=== PATIENT | male | born 1960 | race Caucasian/White ===

== ENCOUNTER 2021-08-11 13:08 | Outpatient (CLI) | payer SELFPAY ==
--- NOTE | 2021-08-11 | XR_ITS ---
WS: [id number] PROCEDURE: XR chest 2V* [id number] CLINICAL INFORMATION: CHF EXACERBATION GENERALIZED WEAKNESS COMPARISON: None. FINDINGS: Heart: Cardiomegaly. Lungs: Moderate chronic emphysematous changes. No acute pulmonary infiltrates. No focal pneumonia or pleural fluid. Bones: Normal visualized bony structures. XR/XR chest 2V* [id number] IMPRESSION: 1. Cardiomegaly. 2. No acute-appearing pulmonary infiltrates.
== END 2021-08-11 13:09 | disposition home or self-care (01) ==
PROVIDERS: Visit Provider Nurse Practitioner Family
DX: I50.9 Heart failure, unspecified (principal); R63.5 Abnormal weight gain; R53.1 Weakness; R06.01 Orthopnea; I51.7 Cardiomegaly; R91.8 Other nonspecific abnormal finding of lung field
CPT/HCPCS: 71046

== ENCOUNTER 2025-03-20 09:09 | Outpatient (CLI) | payer SELFPAY ==
--- NOTE | 2025-03-20 09:14 | CT_ITS ---
WS: [id number] CT ABDOMEN AND PELVIS WITH AND WITHOUT CONTRAST HISTORY: OTHER FECAL ABNORMALITIES/ELEVATED CARCINOEMBRYONIC ANTIGEN TECHNIQUE: Unenhanced 5 mm axial imaging first performed through the abdomen. Post contrast imaging through the abdomen and pelvis. Oral contrast has not been provided. Sagittal and coronal reformats are submitted. All CT scans at [facility] use at least one of these dose optimization techniques: automated exposure control; mA and/or kV adjustment per patient size (includes targeted exams where dose is matched to clinical indication); or iterative reconstruction. CONTRAST: Omnipaque 350; 95 mL IV. DLP: 2608.54 mGy.cm COMPARISON: None available. Benign granuloma RIGHT lung base. Heart is normal size. Small hiatal hernia. Liver: Liver is abnormal. Liver is normal size but there are multiple low- attenuation masses scattered throughout the liver. The largest is from the lateral segment of the LEFT lobe measuring 7.9 x 6.8 cm. There is peripheral enhancement suggests this is likely a hemangioma. Some of the remaining masses throughout the liver demonstrate mild peripheral enhancement and others do not. No intrahepatic duct dilatation. Gallbladder is slightly contracted. Negative spleen and pancreas. 1.7 cm RIGHT adrenal adenoma with low-attenuation Hounsfield units. Normal LEFT adrenal gland. Mild atherosclerosis aorta. Bilateral renal masses. Exophytic low- attenuation mass lower pole RIGHT kidney measures 7.8 x 8.0 cm with a focal wall calcification. There is an additional more solid-appearing mass with calcification medial upper pole LEFT kidney measuring 2.6 x 1.9 cm. No enhancement noted. Normally distended stomach and small bowel. Short segment narrowing and colonic wall thickening involving the rectosigmoid junction extends over a length of 6.5 cm. Wall thickening measures up to 1.4 cm. Narrowing of the lumen. No obstruction. No significant diverticular disease. No appendicitis. Ventral abdominal wall hernia contains fat. No ascites or adenopathy. Mild scoliosis. Advanced degenerative disc disease at L5-S1. Unilateral LEFT L5 pars defect. CT/CT abdomen pelvis wo/w [id number] IMPRESSION: 1. Short segment circumferential rectosigmoid wall thickening with narrowing o f the lumen. Neoplasm needs to be excluded. Recommend colonoscopy. 2. Numerous hepatic masses throughout both lobes of the liver. Quality of this examination is compromised by patient's body habitus. Some of these masses are probably hemangiomas. Additional sites of cavernous hemangiomas and/or metasta sis are not excluded. It may be difficult imaging this patient well due to body habitus. PET/CT imaging may be of benefit. Additional attempt at multiphase im aging of the liver by MRI or CT could be of benefit. Ultrasound may probably no t be helpful due to body habitus. 3. Bilateral renal masses. RIGHT renal mass is probably a cyst with wall calci fication. The more solid mass upper pole LEFT kidney will need to be further ev aluated but this may be a complex cyst. 4. RIGHT adrenal gland mass, 1.7 cm is probably an adenoma.
[2025-03-20] MEDS: iohexol 350 mg/mL 500 mL Btl (per mL) IV (10:30)
== END 2025-03-20 09:10 | disposition home or self-care (01) ==
LOC: RAD 09:12
PROVIDERS: PCP Nurse Practitioner Family; Visit Provider Nurse Practitioner Family
DX: R19.5 Other fecal abnormalities (principal); R97.0 Elevated carcinoembryonic antigen [CEA]; R93.89 Abnormal findings on diagnostic imaging of other specified body structures; K76.89 Other specified diseases of liver; N28.89 Other specified disorders of kidney and ureter; R93.422 Abnormal radiologic findings on diagnostic imaging of left kidney; E27.9 Disorder of adrenal gland, unspecified; J84.10 Pulmonary fibrosis, unspecified; K44.9 Diaphragmatic hernia without obstruction or gangrene; R93.2 Abnormal findings on diagnostic imaging of liver and biliary tract; I70.0 Atherosclerosis of aorta; R93.421 Abnormal radiologic findings on diagnostic imaging of right kidney; K43.9 Ventral hernia without obstruction or gangrene; M41.9 Scoliosis, unspecified; M51.379 Other intervertebral disc degeneration, lumbosacral region without mention of lumbar back pain or lower extremity pain; M43.06 Spondylolysis, lumbar region
CPT/HCPCS: 74178

== ENCOUNTER 2025-07-10 07:30 | Day surgery (SDC) | payer MEDICAID, SELFPAY ==
[2025-07-10 07:56] VITALS: BP 155/86; PULSE 61; RESP 18; TEMP 36.3; O2SAT 95; BMI 53.8
--- NOTE | 2025-07-10 08:51 | P.ANESASSM_ITS ---
Pre-Anesthetic Assessment Height/Weight: Height 1.87 m Weight 187.787 kg Temp Pulse Resp BP Pulse Ox O2 Del Method 97.3 F L 61 18 155/86 95 Room Air 07/10/25 07:56 07/10/25 07:56 07/10/25 07:56 07/10/25 07:56 07/10/25 07:56 07/10/25 07:56 Preop Diagnosis: Hematochezia Operation Date: 07/10/25 08:45 Proposed Procedures p Colonoscopy 70988 G0105 K92.1(Not Applicable) - Ralph Han MD Familial anesthetic complications: none Was Beta Zackery taken within 24 hours: Yes Last intake: Intake Last Liquid Date 07/09/25 Last Liquid Time 20:00 Last Solid Date 07/09/25 Last Solid Time 10:30 Social Tobacco (smokeless >12hours) and No alcohol Exam alert, clear to auscultation bilaterally and regular rate & rhythm Airway Submandibular: within normal limits Cervical ROM: within normal limits Mallampati: Class II Dentition: chipped (front teeth appear brittle.) Pulmonary Sleep Apnea (cpap compliant) CV/HEM Congestive Heart Failure and Hypertension None reported Hepatic None reported GI constipation hematochezia Metabolic Hyperlipidemia and Morbid Obesity [facility] [place] None reported Neuropsych None reported Anesthetic Plan ASA status: 3 Anesthesia: MAC Medications/Allergies Home Medications ?Medication ?Instructions ?Recorded ?Confirmed ?Last Taken ?Type furosemide 40 mg tablet (Lasix) 40 mg PO BID 05/24/25 07/04/25 07/03/25 History metoprolol tartrate 25 mg tablet 25 mg PO BID 05/24/25 07/10/25 07/10/25 History 0530 aspirin 81 mg tablet 81 mg PO DAILY 07/04/2506/2907/09/25 History 0700 Allergies Allergy/AdvReac Type Severity Reaction Status Date / Time Penicillins Allergy ALGY-Rash Verified 07/04/25 13:20 Current Medications Generic Name Dose Route Start Last Admin Trade Name Freq PRN Reason Stop Dose Admin Sodium Chloride 1,000 mls @ 15 mls/hr 07/10/25 07:36 07/10/25 08:00 Sodium Chloride 0.9% IV 07/11/25 07:35 15 mls/hr .Q24H PRN Administration COLONOSCOPY FLUIDS PFSH Anesthesia Social History (Updated 05/24/25 @ 14:44 by Thelma Casas) Smoking and tobacco/nicotine status: former use of tobacco/nicotine Alcohol intake: former Substance/Drug Use: never
--- NOTE | 2025-07-10 09:03 | W.PM.OPSFHP ---
Same Day Surgery H&P Indication for Procedure/HPI DATE OF PROCEDURE: July 10, 2025 CHIEF COMPLAINT/INDICATIONFOR SURGICAL PROCEDURE: hematochezia PREOP DIAGNOSIS: Hematochezia PLANNED PROCEDURE: Operation Date: 07/10/25 08:45 Proposed Procedures p Colonoscopy 39943 G0105 K92.1(Not Applicable) - Ralph Han MD Medications/Allergies* Home Medications ?Medication ?Instructions ?Recorded ?Confirmed ?Type furosemide 40 mg tablet (Lasix) 40 mg PO BID 05/24/25 07/04/25 History metoprolol tartrate 25 mg tablet 25 mg PO BID 05/24/25 07/10/25 History aspirin 81 mg tablet 81 mg PO DAILY 07/04/25 07/10/25 History Allergies/Adverse Reactions Allergy/AdvReac Type Severity Reaction Status Date / Time Penicillins Allergy ALGY-Rash Verified 07/04/25 13:20 Current Medications: Generic Name Dose Route Start Last Admin Trade Name Freq PRN Reason Stop Dose Admin Sodium Chloride 1,000 mls @ 15 mls/hr 07/10/25 07:36 07/10/25 08:00 Sodium Chloride 0.9% IV 07/11/25 07:35 15 mls/hr .Q24H PRN Administration COLONOSCOPY FLUIDS Pertinent History/Comorbid Conditions* Social History Smoking and tobacco/nicotine status: former use of tobacco/nicotine Alcohol intake: former Substance/Drug Use: never Pertinent Exam Findings alert, oriented x 3, clear to auscultation bilaterally, regular rate & rhythm and procedure specific exam findings abdomen soft, nt, nd Recommendations Risks and benefits of procedure reviewed and Patient/family agree to proceed Surgery/Procedure today Coding Level of Care Code Acute Code for Chg Rere
[2025-07-10 09:29] LABS: Hematocrit 41.1 % (37-53); Hemoglobin 13.30 g/dL (11.27-16.99); Mean Corpuscular HGB Conc 32.4 g/dL (30-55); Mean Corpuscular Hemoglobin 29.4 pg (27-33); Mean Corpuscular Volume 90.9 fl (82-101); Nucleated Red Blood Cells % 0 %; Platelet Count 227 10^3/cmm (157-399); Red Blood Count 4.52 10^6/uL (3.85-5.65); White Blood Count 7.88 10^3/uL (3.29-11.43)
[2025-07-10 09:43] LABS: Anion Gap 11.1 (5-19); Blood Urea Nitrogen 13 mg/dL (8-23); Calcium 9.7 mg/dL (8.5-10.5); Carbon Dioxide 28 mmol/L (22-29); Chloride 101 mmol/L (98-107); Creatinine Clr Calc Pharmacy 148.1215; Glucose 126 mg/dL (65-115); Osmolality Calculated 284 mOsm/kg (285-295); Potassium 4.1 mmol/L (3.5-5.1); Sodium 136 mmol/L (136-145)
--- NOTE | 2025-07-10 10:36 | PC.NURSE ---
cecum time 1027
[2025-07-10 10:41] VITALS: BP 132/76; PULSE 76; RESP 14; TEMP 36.1; O2SAT 98
--- NOTE | 2025-07-10 11:13 | ANE.PACU2 ---
Inpatient post-anesthesia follow up: Airway intact: Yes Vital signs: Temperature 97.0 F Pulse Rate 76 Respiratory Rate 14 Blood Pressure 132/76 Pulse Oximetry 98 Oxygen Delivery Me thod Room Air Oxygen Flow Rate Fraction of Inspir ed Oxygen Hydration adequate: Yes Nausea and vomiting: No Pain level: 1 Mental status: Baseline
[2025-07-13 14:13] LABS: Mismatch Repari Proteins-IHC See Report
== END 2025-07-10 11:13 | disposition home or self-care (01) ==
PROVIDERS: PCP Nurse Practitioner Family; Visit Provider Student in an Organized Health Care Education/Training Program
PROC: 0DJD8ZZ Inspection of Lower Intestinal Tract, Via Natural or Artificial Opening Endoscopic (ICD-10-PCS; CPT 45378; principal; 2025-07-10 08:45)
DX: C20 Malignant neoplasm of rectum (principal); K92.1 Melena; G47.30 Sleep apnea, unspecified; I11.0 Hypertensive heart disease with heart failure; I50.9 Heart failure, unspecified; E78.5 Hyperlipidemia, unspecified; E66.01 Morbid (severe) obesity due to excess calories; Z68.43 Body mass index [BMI] 50.0-59.9, adult; Z79.82 Long term (current) use of aspirin; Z87.891 Personal history of nicotine dependence
CPT/HCPCS: 36415; 45380; 45381; 80048; 85025; 88305; 88341; 88342; J2704; J3490; J7030; J9999

== ENCOUNTER → 2025-07-19 10:51 | Outpatient (BNVA) | payer MEDICAID, SELFPAY | PROVIDERS: PCP Nurse Practitioner Family; Visit Provider Student in an Organized Health Care Education/Training Program | DX: Z09 Encounter for follow-up examination after completed treatment for conditions other than malignant neoplasm (principal) | CPT/HCPCS: 99213 ==

== ENCOUNTER 2025-07-20 13:48 | Outpatient (CLI) | payer MEDICAID, SELFPAY ==
--- NOTE | 2025-07-20 13:55 | PETR_ITS ---
PROCEDURE INFORMATION: Exam: PET/CT Skull Base to Mid-thigh Exam date and time: 07/20/2025 2:50 PM Age: 64 years old Clinical indication: Condition or disease; Primary cancer: Rectal cancer; Additional info: A primary or metastatic malignant neoplasm that affects the LABS AND CLINICAL REPORTS: Glucose: 114 mg/dl Treatment strategy for malignancy (PET staging): Initial Staging (PI) TECHNIQUE: Imaging protocol: Following at least four-hour fasting and following the injection of radiopharmaceutical, low dose CT images were obtained. Then, PET images were obtained. Attenuation corrected images were constructed using the CT scan. Fused images of PET and CT were reviewed. The standardized uptake values (SUV) reported below are maximum values within a region of interest, expressed in gm/ml. Exam includes orbital meatal line to mid-thigh. SUV normalization method: BodyWeight Radiopharmaceutical: 11.22 mCi F-18 FDG (Fluorodeoxyglucose), IV. Time of imaging post radiopharmaceutical administration: 45 minutes Injection site: left hand COMPARISON: CT abdomen pelvis wo/w [id number] 03/20/2025 10:21 AM FINDINGS: Brain: On the nondedicated limited brain images there is no abnormal distribution of the radiotracer in the orozco and white matter. Pharynx: Normal distribution of the radiotracer in nasopharyngeal, and oropharyngeal structures. Larynx: Normal distribution of the radiotracer in laryngeal structures. Lungs, pleura and trachea: 2 cm left upper lobe paramediastinal round nodule on axial image 84 measures 2.9 SUV. A couple of calcified granulomas in the right lower lobe. No pleural effusion. Heart: Normal physiologic uptake. Mild cardiomegaly. There is no pericardial effusion. Mediastinal space: No abnormal uptake. Liver: Bilobar partially calcified metastases measure up to 6 cm with the highest uptake of 11.5 SUV as seen in 4 cm segment 4 metastasis Gallbladder and biliary ducts: No abnormal uptake. Pancreas: Normal distribution of radiotracer. Spleen: Normal size without abnormal radiotracer uptake. Adrenal glands: No abnormal uptake. 2.1 x 1.4 cm right adrenal nodule likely represents benign adrenal cortical adenoma with maximum density of 14 Hounsfield units. No left adrenal nodules Kidneys and ureters: Normal physiologic uptake. No hydronephrosis. 3 cm hyperdense nodule (45 Hounsfield units) exophytic cephalad from the upper pole of the left kidney containing a single small peripheral calcification is hypermetabolic (0.6 SUV) compatible with benign finding, likely a hemorrhagic cyst. 8 cm simple cyst is exophytic laterally from the lower pole of the right kidney. Stomach and bowel: Primary tumor noted as about 7 cm long segment of concentric wall thickening in the upper rectum measuring 14.4 SUV. About 3.5 cm long segment of intense uptake in the distal sigmoid colon measuring 55.4 SUV corresponding to well-defined 4 cm polypoid mass on prior CT on 03/20/2025 (series 6, image 66, series 8, image 47). Long linear segment of increased uptake in descending colon, and diffusely increased activity in the right and transverse colon and in a few loops of small bowel with no corresponding CT abnormality is benign. No abnormal dilatation of the bowel. Vasculature: No abnormal uptake. Lymph nodes: No abnormal uptake. No lymphadenopathy in the head, neck, chest, abdomen, pelvis, and extremities. Sequela of exposure to granulomatous disease with calcified granulomas in normal-sized right hilar lymph nodes. Skeleton: No abnormal uptake in the visualized axial and appendicular skeleton. Soft tissues: No abnormal uptake in the visualized head, neck, chest, abdomen, pelvis, and extremities. Notes: METRICS: Mediastinal blood pool maximal uptake is 3.8 SUV. Normal liver parenchyma maximal uptake is 4.3 SUV. PET/PET skull to thigh INIT [id number] IMPRESSION: 1. Primary rectal cancer in the upper rectum noted as about 7 cm long segment of wall thickening measuring 14.4 SUV. Bilobar partially calcified liver metastases measuring up to 6 cm with the highest uptake of 11.5 SUV. 2. 2 cm solid lung nodule in the left upper lobe with low-grade uptake of 2.9 SUV is not compatible with colon cancer metastasis, possibly benign finding. 3. Polypoid nonobstructing mass in the distal sigmoid colon with most intense uptake of 55.4 SUV significantly exceeding uptake within malignant lesions described above (in the rectum and in the liver) likely represents another pathology, not necessarily malignant. 4. Hypometabolic hyperdense nodule exophytic from the upper pole of the left kidney likely represents hemorrhagic cyst. Additional benign findings include large simple cyst in the lower pole of the right kidney, and small right adrenal nodule likely representing adenoma.
== END 2025-07-20 13:49 | disposition home or self-care (01) ==
PROVIDERS: PCP Nurse Practitioner Family; Visit Provider Nurse Practitioner
DX: C20 Malignant neoplasm of rectum (principal); C78.7 Secondary malignant neoplasm of liver and intrahepatic bile duct; R91.1 Solitary pulmonary nodule; K63.89 Other specified diseases of intestine; N28.9 Disorder of kidney and ureter, unspecified
CPT/HCPCS: 78815; A9552

== ENCOUNTER 2025-08-02 10:30 | Oncology outpatient (recurring) (ONCR) | payer MEDICAID, SELFPAY ==
[2025-08-02 12:22] LABS: Hematocrit 44.2 % (37-53); Hemoglobin 14.40 g/dL (11.27-16.99); Mean Corpuscular HGB Conc 32.6 g/dL (30-55); Mean Corpuscular Hemoglobin 29.3 pg (27-33); Mean Corpuscular Volume 89.8 fl (82-101); Nucleated Red Blood Cells % 0 %; Platelet Count 242 10^3/cmm (157-399); Red Blood Count 4.92 10^6/uL (3.85-5.65); White Blood Count 8.29 10^3/uL (3.29-11.43)
[2025-08-02 12:38] LABS: INR 0.97 (0.8-1.2); Prothrombin Time 13.60 SECONDS (12.1-14.9)
[2025-08-02 12:39] LABS: Partial Thromboplastin Time 26.0 SECONDS (23.9-36.7)
[2025-08-02 12:49] LABS: Carcinoembryonic Antigen 457.2 ng/mL (0.0-4.7)
[2025-08-02 13:01] LABS: Alanine Aminotransferase 23 U/L (0-41); Albumin Level 4.1 g/dL (3.5-5.2); Alkaline Phosphatase 149 U/L (40-130); Anion Gap 13.9 (5-19); Aspartate Amino Transferase 23 U/L (0-40); Blood Urea Nitrogen 14 mg/dL (8-23); Calcium 10.3 mg/dL (8.5-10.5); Carbon Dioxide 27 mmol/L (22-29); Chloride 102 mmol/L (98-107); Creatinine Clr Calc Pharmacy 134.3537; Globulin 3.2 g/dL (1.3-4.6); Glucose 122 mg/dL (65-115); Osmolality Calculated 290 mOsm/kg (285-295); Potassium 3.9 mmol/L (3.5-5.1); Sodium 139 mmol/L (136-145); Total Protein 7.3 g/dL (6.6-8.7)
--- NOTE | 2025-08-02 13:45 | N.ONRAD NP_ITS ---
Radiation Oncology New Patient Visit Patient: Everett Cuellar MR#: [id number] : 1960> Age: 64> Sex: Male> Dictated by: Ash Swenson DO/SEEMA/MARTHA Date of Service: 08/02/2025 Referring Physician(s) : PHYLLIS JOSE MD Diagnosis: C78.7 - secondary malignant neoplasm of liver and intrahepatic bile duct, Diagnosed 07/20/2025 (active) and C20 - malignant neoplasm of rectum, Diagnosed 07/10/2025 (active). RECTAL- MD ADENOCARCINOMA, 4CM FROM AV, ~7CM LENGTH (14.4), 50% OBSTRUCTIVE, DISTAL SIMOID (55.4)- DIFFERENT PATHLOGY?, LATA NODULE 2CM (2.9)RT SIDED FLAT STOOL, +RECTAL BLEEDING, 82# WT LOSS, 5013 DOWN TO 419#, LIVER METS 6CM (11.5)/4CM ( SEGMENT 4), MORBID OBESITY, LIVER BX/SURG EVAL/PULMONARY EVAL/MRI PELVIS, SHELBY DITAL PORTION OF MASS NOTED WITH DISEASE FROM 6-12 O???CLOCK ~ 50% OCCULSIVE DS, LEFT LOBE LIVER MASS-7.9 x 6[address] 03/20/2025, CEA-457.2. STAGE: IV ICD-10: C20, C78.7 Radiotherapy to date: Summary > No prior radiation therapy. Chief Complaint / History of Present Illness: Patient and significant other here to discuss options regarding stage IV rectal carcinoma This is a pleasant 64-year-old morbidly obese male seen for recent diagnosis of MD ADENOCARCINOMA of the distal rectum. Patient sought PCP directed colonoscopy after noting more consistent rectal bleeding since fall at 2023. Patient had difficulty obtaining insurance so that colonoscopy could be scheduled. CT A/P on 03/20/2025 showed no liver of normal size with multiple low-attenuation masses scattered throughout the liver. The largest was in the lateral segment of the left lobe measuring 7.9 x 6.8 cm. There was peripheral enhancement suggesting that it is likely hemangioma Patient underwent colonoscope on 07/10/2025. This returned MD-ADENOCARCINOMA of a lesion partially obstructing that was friable appearing at distal rectum measuring 5 x 3 cm. Laboratory findings were essentially normal with CEA pending. PET/CT on 07/20/2025 showed a 2 cm LATA paramediastinal round nodule (55.4) significantly exceeding uptake within malignant lesions noted. The liver had by lobular partially calcified metastasis measuring up to 6 cm with the highest uptake of 11.5 is seen in 4 cm met in segment 4. In the brow the primary tumor noted to be about 7 cm in length noted in the upper rectum (14.4). There was a 3.5 cm segment of intense uptake in the distal sigmoid colon measuring (55.4) corresponding to a well-defined 4 cm polypoid mass noted on CT of 03/20/2025 no lymphadenopathy in the head neck chest abdomen pelvis or extremities. There is no abnormal uptake in the bones. Current Medications: - Last Reconciled 08/02/25 by Steve Up ascorbate calcium (vitamin C) 500 mg PO DAILY aspirin 81 mg PO DAILY bisacodyl (Dulcolax (bisacodyl)) 5 mg PO DAILY PRN furosemide (Lasix) 40 mg PO BID magnesium hydroxide (Milk of Magnesia) 15 mL PO BID PRN metoprolol tartrate 25 mg PO BID Allergies: Penicillins Allergy (Verified 08/02/25 11:12) ALGY-Rash Medical History: As above Surgical History: As above Family History: Father of lung cancer and brother of colon carcinoma. Social History: Smoking and tobacco/nicotine status: former use of tobacco/nicotine Alcohol intake: former patient has 6 significant other of 21 years. He is a prior . 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 Substance/Drug Use: never Current Complaints / Review of Systems: . As above Vital Signs: Performed on 08/02/2025 10:24 AM BMI - 55.347 kg/m2 (high), Height - 73 in, Weight - 419.5 lbs, Temperature - 97.8 f, Pulse - 67 /min, Respiration - 16 /min, O2 Sat - 97 %, Pain - 0, Fatigue - 0 and BP - 135/ 71 mm(hg). Physical Exam: AAOX3 neck is supple thyroid midline. Abdomen obese nontender no rebound. Extremities intact x 4. Vertebral exam shows no bony tenderness. shows normal male external genitalia for age. Rectal exam shows sphincter tone to be adequate. The distal portion of the mass could be felt and that was from the 6:00 to 12 o'clock position. No blood per exam glove. Performance Status: KPS 80 Pathology: Primary, c78.7 - secondary malignant neoplasm of liver and intrahepatic bile duct, Diagnosed 07/20/2025 (active) and Primary, c20 - malignant neoplasm of rectum, Diagnosed 07/10/2025 (active) . Lab: PENDING CEA Imaging: See HPI Impression: C78.7 - secondary malignant neoplasm of liver and intrahepatic bile duct, Diagnosed 07/20/2025 (active) and C20 - malignant neoplasm of rectum, Diagnosed 07/10/2025 (active). RECTAL- MD ADENOCARCINOMA, 4CM FROM AV, ~7CM LENGTH (14.4), 50% OBSTRUCTIVE, DISTAL SIMOID (55.4)- DIFFERENT PATHLOGY?, LATA NODULE 2CM (2.9)RT SIDED FLAT STOOL, +RECTAL BLEEDING, 82# WT LOSS, 5013 DOWN TO 419#, LIVER METS 6CM (11.5)/4CM ( SEGMENT 4), MORBID OBESITY, LIVER BX/SURG EVAL/PULMONARY EVAL/MRI PELVIS, SHELBY DITAL PORTION OF MASS NOTED WITH DISEASE FROM 6-12 O???CLOCK ~ 50% OCCULSIVE DS, CEA ??? 457.2. STAGE: IV ICD-10: C20, C78.7 Plan: Discussed options with patient and significant other and they wish to proceed with treatment. Open MRI of the pelvis, Surgical evaluation Pulmonary evaluation, Liver BX, CEA 457.2 RTC after chemotherapy and liver biopsy results. Signed by: 08/02/2025 1:48:42 PM <<Signature on File>> Time spent with patient/significant other/record review/report reduction: 70 minutes CPT Code: CPT Code:
== END 2025-08-28 23:59 | disposition home or self-care (01) ==
LOC: ONCMED 10:30
PROVIDERS: PCP Nurse Practitioner Family; Visit Provider Internal Medicine
DX: C20 Malignant neoplasm of rectum (principal); C78.7 Secondary malignant neoplasm of liver and intrahepatic bile duct
CPT/HCPCS: 36415; 80053; 82378; 83615; 85025; 85610; 85730; 99205

== ENCOUNTER 2025-08-13 07:50 | Outpatient (CLI) | payer MEDICAID, SELFPAY ==
--- NOTE | 2025-08-13 08:00 | CT_ITS ---
WS: [id number] CT CHEST TECHNIQUE: Noncontrast CT of the chest with coronal and sagittal reformatted images. CLINICAL INFORMATION: lung nodule COMPARISON: PET/CT 07/20/2025 DLP: [address] scans at [facility] use at least one of these dose optimization techniques: automated exposure control; mA and/or kV adjustment per patient size (includes targeted exams where dose is matched to clinical indication); or iterative reconstruction. FINDINGS: Partially visualized and partially calcified liver metastasis as seen on the recent PET/CT. Again seen is the irregular spiculated nodule in the LEFT upper lobe medially measuring approximately 2.5 x 1.7 cm. Indeterminate on the prior PET/CT but has a suspicious appearance by CT. This measures a few millimeters larger today compared to the prior PET/CT Tiny noncalcified nodule LEFT upper lobe anteriorly. Small RIGHT perifissural nodule. Normal caliber thoracic aorta. No mediastinal or hilar lymphadenopathy. Stable increased attenuation lesion upper pole LEFT kidney. Hypertrophic changes thoracic spine. CT/CT chest ION (PULM ONLY) [id number] IMPRESSION: 1. Images obtained for intraoperative navigational bronchoscopy
== END 2025-08-13 07:51 | disposition home or self-care (01) ==
PROVIDERS: PCP Nurse Practitioner Family; Visit Provider Internal Medicine
DX: R91.1 Solitary pulmonary nodule (principal)
CPT/HCPCS: 71250

== ENCOUNTER → 2025-08-21 15:12 | Outpatient (BNVA) | payer MEDICAID, SELFPAY | PROVIDERS: PCP Nurse Practitioner Family; Visit Provider Internal Medicine | DX: R07.9 Chest pain, unspecified (principal); I45.89 Other specified conduction disorders | CPT/HCPCS: 93005 ==

== ENCOUNTER 2025-09-07 08:52 | Outpatient (CLI) | payer MEDICAID, SELFPAY ==
[2025-09-07] VITALS (19 sets, daily range): BP systolic 122–154; BP diastolic 59–88; PULSE 53–72; RESP 12–22; TEMP 37.1; O2SAT 91–97; BMI 55.0
--- NOTE | 2025-09-07 09:00 | XACV_ITS ---
Exam Room: 2 Ht: 185 cm Wt: 189 kg BSA: 3.23 m2 Gender: Male : 1960 Any Known Allergies: Penicillins Exam Priority: Routine Procedure(s): Procedure Description: Diagnostic procedure Procedure Description: Left Heart Catheterization Procedure Description: Left ventriculography Procedure Description: Coronary Angiography Diagnostic Cath Status: Elective Diagnostic Findings * INDICATION: Worsening angina. * No significant disease noted in the Left Main, Left Anterior Descending, Right, or Circumflex coronary arteries. * Coronary angiography shows left dominance. Conclusions 1. No significant disease noted in the Left Main, Left Anterior Descending, Right, or Circumflex coronary arteries. 2. Normal left ventricular systolic function. Ejection fraction of 60%. Recommendations * Risk factor modification. * Outpatient cardiology follow up in 1 months. Interventional RX Recommendation: medical therapy and/or counseling Diagnostic RX Recommendation: medical therapy and/or counseling Anticoagulation: Heparin Ventriculography Ejection Fraction: 60.0 % Pressures Phase:Rest AO : 154 / 60 ( 96 ) @ 11:50:00 AM 109 / 66 ( 84 ) @ 11:59:00 AM 130 / 58 ( 85 ) @ 11:59:00 AM LV : 121 / 1 / 15 @ 11:57:00 AM 119 / 1 / 18 @ 11:59:00 AM 116 / 2 / 17 @ 11:59:00 AM Valves Phase:DefaultPhase AV : 6.0 @ 11:06:24 AM AV Mean Gradient: 20.0 @ 11:06:24 AM Clinical Evaluation EBL: 5mL-10mL Procedural Details Procedure Consent Obtained. Pre-Procedure Time Out. Identified patient by full name and date of as verbalized by the patient/guarantor. Does the consent match the physician's order: Yes. Accurate & Complete Informed Consent: Yes. Inpatient/Outpatient History & Physical on Chart: Yes. If H&P is completed, is and addenduem needed: No. Visualize and Verify Site with Patient/Guarantor: N/A. Relevant Radiology Images available: Yes. The risks, benefits, and alternatives of sedation and/or procedure were discussed by physician. The patient agrees to continue. Procedure started. [facility] Clinical Fraility Score: 3: Managing Well. [employer] Indications: Worsening Angina/Unstable angina. Chest Pain Symptom Assessment: Typical Angina Symptoms. Cardiovascular Instability: No. Correct patient, site and procedure confirmed by cath team. PERRLA. Strong, equal hand bag filler bilaterally. Lungs clear x 5 lobes. IV Site on Arrival: 20 gauge in the left anticubital. IV Fluids: 0.9% NaCl at KVO. 0 mL infused prior to slab tripper. Pre Procedural Pulses: bilateral dorsalis pedis was Doppled. Pre Procedural Pulses: bilateral posterior tibial was Doppled. Pre Procedural Pulses: bilateral radial was 2+. Oxygen started at 2liters/min via nasal canula. right groin was prepped with chloroprep then draped in the usual sterile fashion. right radial was prepped with chloroprep then draped in the usual sterile fashion. Physician notified. Baseline sample Acquired. HR: 52 BPM. Patient's family in the slab tripper waiting room. Dr. Iniguez will update at the completion of the procedure. Equipment: 6F - Radial. Cardiac Cath Pack. ACIST Manifold Kit Model BT 2000. Heparinized Saline (2 units/mL), 1000 mL bag. Physician arrived. Physician scrubbed in. Immediate Pre-Procedure Time Out. Correct Patient: Yes; Correct Procedure: Yes; Correct Site: Yes; Correct Patient Position: Yes; Correct Supplies: Yes; Dried Flammable Prep: Yes; Blood Products Available: N/A;. Lidocaine 1% infiltrated to the right radial. Arterial access obtained. A 5 vietnamese TIG catheter in over the exchange J wire. Multiple views taken of left coronary artery. Catheter redirected to the RCA. Catheter removed over the exchange J wire. A 5 vietnamese JR4 catheter in over the exchange J wire. Multiple views taken of right coronary artery. Catheter removed over the exchange J wire. A 5 vietnamese Angled Pig catheter in over the exchange J wire. EDP Sample taken: LV 121/1,15; HR: 58 BPM; SpO2: 99%. LV gram performed in [place] @ 10 mL/second for a total of 30 mL. EDP Sample taken: LV 119/1,18; HR: 61 BPM; SpO2: 99%. Pullback taken: LV 116/2,17; AO 109/66(84); Mean: 20mmHg, Peak to Peak: 6mmHg, SEP: 7sec/min; HR: 58 BPM; SpO2: 99%. Catheter removed over the exchange J wire. Dr. Iniguez scrubbed out. A TR Band was successful obtaining hemostatsis at the Right Radial artery insertion site. Post Procedure: Pulses reassessed and unchanged. PERRLA. Strong, equal hand bag filler bilaterally. No VTE prophylaxis required. Medication's Wasted: Lidocaine 1% = 18 mL. Medication's Wasted: Nitro = 49.8 mg. Medication's Wasted: Heparin = 1000 units. Medication's Wasted: Other = Fentanyl 75 mcg. Total IV fluids: 30 mL. Post-op diagnosis: non-obstructive CAD. Complications: none. Estimated blood loss: 5mL-10mL. Responsiveness - Normal response to verbal stimuli; alert and oriented, PERRLA. Circulation: W/N/L, pulses unchanged. Nausea/Vomiting: No. Airway - Unaffected, no intervention required; spontaneous ventilation. Procedure completed. Patient transferred by bed to CPRU. Vital chart was stopped. Access Site Site: Right Radial artery Sheath Size: 6 Fr Hemostasis Method: TR Band Hemostasis Success: Successful Procedure Medications Start: 10:44 AM Stop: 10:44 AM Medication: Versed Amount: 1 mg Route: I.V. Start: 10:44 AM Stop: 10:44 AM Medication: Fentanyl Amount: 25 mcg Route: I.V. Start: 10:46 AM Stop: 10:46 AM Medication: Versed Amount: 1 mg Route: I.V. Start: 10:46 AM Stop: 10:46 AM Medication: Nitrogylcerin Amount: 200 mcg Route: I.A. Start: 10:48 AM Stop: 10:48 AM Medication: Heparin Amount: 5000 units Route: I.V. I, the attending physician, have reviewed and verified all procedure medications. Yes, all medications given per verbal order History/Risk Factors Hypertension: No Dyslipidemia: No Peripheral Arterial Disease (PAD): No Myocardial Infarction (PR): No Obesity: Yes Renal Disease: No Tobacco Use: Former Prior Interventions PCI: No CABG: No Valve Surgery: No Report Signatures Finalized by Steve Iniguez MD on 09/08/2025 02:12 PM
[2025-09-07 09:43] LABS: Hematocrit 40.1 % (37-53); Hemoglobin 13.00 g/dL (11.27-16.99); Mean Corpuscular HGB Conc 32.4 g/dL (30-55); Mean Corpuscular Hemoglobin 28.7 pg (27-33); Mean Corpuscular Volume 88.5 fl (82-101); Nucleated Red Blood Cells % 0 %; Platelet Count 254 10^3/cmm (157-399); Red Blood Count 4.53 10^6/uL (3.85-5.65); White Blood Count 7.91 10^3/uL (3.29-11.43)
[2025-09-07 09:59] LABS: Anion Gap 15.9 (5-19); Blood Urea Nitrogen 11 mg/dL (8-23); Calcium 9.8 mg/dL (8.5-10.5); Carbon Dioxide 25 mmol/L (22-29); Chloride 101 mmol/L (98-107); Creatinine Clr Calc Pharmacy 133.8991; Glucose 126 mg/dL (65-115); Osmolality Calculated 287 mOsm/kg (285-295); Potassium 3.9 mmol/L (3.5-5.1); Sodium 138 mmol/L (136-145)
--- NOTE | 2025-09-07 10:18 | P.HPUD_ITS ---
Surgery/Procedure H&P Update DATE OF PROCEDURE: September 07, 2025 DATE H&P PERFORMED: 08/21/25 H&P UPDATE INFORMATION: I have reviewed H&P completed within last 30 days, I have examined patient prior to procedure and No changes to prior documentation PREOP DIAGNOSIS: Worsening angina PRIMARY INDICATION FOR PROCEDURE: Worsening angina PLANNED PROCEDURE: Operation Date: 09/07/25 10:00 Proposed Procedures p Cardiac Catheterization - [facility] w/wo LV & Coros(Left) - Steve Iniguez M.D Possible percutaneous coronary intervention PATIENT REASSESSED PRIOR TO SEDATION, WITH NO CHANGE NOTED: Yes PHYSICAL EXAM: alert, oriented x 3, clear to auscultation bilaterally and r egular rate & rhythm AIRWAY EVAL/ANESTHESIA PLAN: normal airway, ASA III, Local Anesthesia, Risks, benefits & alternatives of sedation and/or procedure discussed and Patient ag kirsten to continue as planned ADDITIONAL INFORMATION: Moderate sedation
== END 2025-09-07 14:11 | disposition home or self-care (01) ==
PROVIDERS: PCP Nurse Practitioner Family; Visit Provider Internal Medicine
DX: I20.0 Unstable angina (principal); C20 Malignant neoplasm of rectum; C78.7 Secondary malignant neoplasm of liver and intrahepatic bile duct; Z87.891 Personal history of nicotine dependence
CPT/HCPCS: 36415; 80048; 85025; 93458; 99152; C1769; C1887; C1894; J1644; J2250; J3010; J3490; J7030; J9999; Q0163; Q9967

== ENCOUNTER 2025-09-11 11:54 | Day surgery (SDC) | payer MEDICAID, SELFPAY ==
[2025-09-11] VITALS (8 sets, daily range): BP systolic 117–144; BP diastolic 73–84; PULSE 52–60; RESP 17–18; TEMP 36.1–36.7; O2SAT 92–98; BMI 54.7
--- NOTE | 2025-09-11 11:58 | SC_ITS ---
WS: [id number] C-arm FL for CVA 93801 REASON FOR EXAM: Port placement FINDINGS: Chemotherapy infusion port overlying the upper lateral right chest with trans right IJ infusion catheter with tip in the distal SVC. SC/C-arm FL for CVA 93939 IMPRESSION: Chemotherapy port and infusion catheter placement as above.
--- NOTE | 2025-09-11 12:21 | W.PM.OPSUD ---
Surgery/Procedure H&P Update DATE OF PROCEDURE: September 11, 2025 DATE H&P PERFORMED: 08/20/25 H&P UPDATE INFORMATION: I have reviewed H&P completed within last 30 days, I have examined patient prior to procedure, No changes to prior documentation and Risks and benefits of the procedure reviewed PLANNED PROCEDURE: Operation Date: 09/11/25 13:35 Proposed Procedures p Port a Cath Insertion 36714 Z95.828(Not Applicable) - Ralph Han MD
--- NOTE | 2025-09-11 12:45 | P.ANESASSM_ITS ---
Pre-Anesthetic Assessment Height/Weight: Height 1.85 m Weight 188.241 kg Temp Pulse Resp BP Pulse Ox O2 Del Method 97 F L 59 L 18 144/84 96 Room Air 09/11/25 12:30 09/11/25 12:30 09/11/25 12:30 09/11/25 12:30 09/11/25 12:30 09/11/25 12:30 Operation Date: 09/11/25 13:35 Proposed Procedures p Port a Cath Insertion [id number] Z95.828(Not Applicable) - Ralph Han MD Familial anesthetic complications: none Was Beta Zackery taken within 24 hours: Yes Was Clonidine taken within 24 hours: N/A Last intake: Intake Last Liquid Date 09/10/25 Last Liquid Time 20:00 Last Solid Date 09/10/25 Last Solid Time 20:00 Social Tobacco and No alcohol Exam alert, oriented x 3, clear to auscultation bilaterally and regular rate & rhythm Airway Mallampati: Class IV Dentition: chipped Pulmonary Sleep Apnea CV/HEM Congestive Heart Failure and Hypertension Metabolic Morbid Obesity Anesthetic Plan ASA status: 3 Anesthesia: MAC Risk of > 500 ml blood loss (7ml/kg in children): No Medications/Allergies Home Medications ?Medication ?Instructions ?Recorded ?Confirmed ?Last Taken ?Type furosemide 40 mg tablet (Lasix) 40 mg PO BID 05/24/25 09/10/25 09/10/25 History metoprolol tartrate 25 mg tablet 25 mg PO BID 05/24/25 09/11/25 09/11/25 07:40 History aspirin 81 mg tablet 81 mg PO DAILY 07/04/2508/2909/10/25 History ascorbate calcium (vitamin C) 500 500 mg PO DAILY 03/2309/10/25 Unknown History mg tablet bisacodyl 5 mg tablet,delayed 5 mg PO DAILY PRN Consti pation 08/02/25 09/10/25 Unknown History release (Dulcolax (bisacodyl)) magnesium hydroxide 400 mg/5 mL 15 ml PO BID PRN const ipation #710 08/02/25 09/10/25 09/10/25 Rx oral suspension (Milk of Magnesia) mL Allergies Allergy/AdvReac Type Severity Reaction Status Date / Time Penicillins Allergy ALGY-Rash Verified 09/11/25 12:07 [facility] Anesthesia Social History Smoking and tobacco/nicotine status: former use of tobacco/nicotine Quit status (tobacco/nicotine): has quit using Year quit tobacco: 2003 Former quit date comment: 1 pppd X 10 years Alcohol intake: former Substance/Drug Use: never
[2025-09-11] MEDS: heparin, porcine 1,000 unit/mL INJ 10 mL 6000 UNIT INTRACATH (14:00)
[2025-09-11] MEDS: lidocaine-epi 1% 20 mL INJ 3 ML INJECTION (14:00)
[2025-09-11] MEDS: BUPivacaine 0.25% INJ 10 mL 3 ML INJECTION (14:00)
--- NOTE | 2025-09-11 14:14 | PM.OP ---
Operative Report Date of procedure: September 11, 2025 Pre-op diagnosis: Colorectal cancer Post-op diagnosis: same Post-op findings: Tip of catheter at atriocaval junction confirmed with intraoperative fluoroscopy Procedure done: Port-A-Cath insertion Implants: Port-A-Cath Specimens removed/disposition: N/A Pathology: none sent Surgeon: Ralph Han MD Chief Security Officer: N/A Anesthesia: MAC Estimated blood loss (mL): 10 Complications: N/A Findings: Tip of catheter at atriocaval junction confirmed with intraoperative fluoroscopy Condition: stable Disposition: same day Brief History: 64-year-old male with colorectal cancer. Needs port for chemotherapy. Discussed risk and benefits and patient agreed to proceed with Port-A-Cath insertion Procedure: Patient was brought into the operating room and a timeout was carried out. Procedure was done under MAC. Patient was placed supine with the arms tucked and in Trendelenburg. Patient was prepped and draped in the usual sterile fashion. Using ultrasound guidance the right internal jugular vein was accessed. A guidewire was then placed down to the atriocaval junction using fluoroscopy. The finder needle was removed and the guidewire was secured. I then turned my attention to creating a pocket over the right chest. Make sure to locally infiltrated using plain lidocaine and bupivacaine at the site of the pocket and throughout the tunnel site. I confirmed adequate hemostasis at the pocket. I then proceeded to place the port that was already preassembled and flushed with heparinized saline and the chest pocket. I tunneled the catheter from the chest to the neck at the site where I accessed the internal jugular vein. I measured and adjusted the length of the catheter so it would reach the atrial caval junction. At this point, I used a dilator to dilate the tract into the internal jugular vein using fluoroscopy. I removed the guidewire and proceeded to thread the central venous catheter through the introducer. In the process, I removed the sheath as a completely pushed the catheter into the internal jugular vein. I then confirmed adequate placement of the catheter by performing intraoperative interpretation of fluoroscopy. The tip of the catheter was confirmed to be placed in the atriocaval junction. There were no kinks noted throughout the trajectory of the catheter. I then proceeded to test the port and was satisfied with its functionality. I proceeded to flushed the catheter without any issues. I then hep-locked the port. Skin was closed using deep dermal 3-0 Vicryl, subcuticular 4-0 Monocryl, and Dermabond. Patient was then transferred to PACU without any complications.
== END 2025-09-11 15:34 | disposition home or self-care (01) ==
PROVIDERS: PCP Nurse Practitioner Family; Visit Provider Student in an Organized Health Care Education/Training Program
PROC: (CPT 36561; principal; 2025-09-11 13:25)
DX: C19 Malignant neoplasm of rectosigmoid junction (principal); I11.0 Hypertensive heart disease with heart failure; I50.9 Heart failure, unspecified; G47.30 Sleep apnea, unspecified; E66.01 Morbid (severe) obesity due to excess calories; Z68.43 Body mass index [BMI] 50.0-59.9, adult; Z79.82 Long term (current) use of aspirin; Z87.891 Personal history of nicotine dependence
CPT/HCPCS: 36561; 76000; 77001; C1788; J1100; J1644; J2405; J2704; J3010; J3372; J3490; J7030; J9999

== ENCOUNTER 2025-09-24 09:00 | Oncology outpatient (recurring) (ONCR) | payer MEDICAID, SELFPAY ==
--- NOTE | 2025-09-24 09:00 | CTR_ITS ---
PROCEDURE INFORMATION: Exam: CT Chest With Contrast; Diagnostic Exam date and time: 09/24/2025 9:44 AM Age: 64 years old Clinical indication: Condition or disease; Other: Rectal cancer; Prior surgery; Surgery date: 6+ months; Surgery type: Port TECHNIQUE: Imaging protocol: Diagnostic computed tomography of the chest with contrast. Radiation optimization: All CT scans at this facility use at least one of these dose optimization techniques: automated exposure control; mA and/or kV adjustment per patient size (includes targeted exams where dose is matched to clinical indication); or iterative reconstruction. Contrast material: OMNI 350; Contrast volume: 100 ml; Contrast route: INTRAVENOUS (IV); COMPARISON: CT chest ION (PULM ONLY) [id number] 08/13/2025 8:26 AM RADIATION DOSE METRICS: Total DLP (mGy-cm): 2339.42 FINDINGS: Lungs: No significant interval change nodule medial left upper lobe image 22 series number 5 measuring a proximally 1.8 cm AP diameter 2.2 cm in transverse diameter. 2.6 mm nodule anterior left upper lobe image 18 series number 5 appears less dense and smaller. Calcified granuloma again seen right lower lobe. Pleural spaces: Unremarkable. No pneumothorax. No pleural effusion. Heart: Unremarkable. No cardiomegaly. No pericardial effusion. Lymph nodes: Stable small lymph nodes. Vasculature: Unremarkable. No aortic aneurysm. Bones/joints: Stable degenerative changes, stable Schmorl's nodes, changes of dish. Soft tissues: Unremarkable. PROCEDURE INFORMATION: Exam: CT Abdomen And Pelvis With Contrast Exam date and time: 09/24/2025 9:44 AM Age: 64 years old Clinical indication: Condition or disease; Other: Rectal cancer; Prior surgery; Surgery date: 6+ months; Surgery type: Port TECHNIQUE: Imaging protocol: Computed tomography of the abdomen and pelvis with contrast. Radiation optimization: All CT scans at this facility use at least one of these dose optimization techniques: automated exposure control; mA and/or kV adjustment per patient size (includes targeted exams where dose is matched to clinical indication); or iterative reconstruction. Contrast material: OMNI 350; Contrast volume: 100 ml; Contrast route: INTRAVENOUS (IV); COMPARISON: PT PET skull to thigh INIT [id number] 07/20/2025 2:50 PM RADIATION DOSE METRICS: Total DLP (mGy-cm): 2339.42 FINDINGS: Liver: Difficultly to accurately compare size of multiple liver metastases when compared to 08/13/2025. No change in number and felt to be no significant change in size. Gallbladder and biliary ducts: Normal. No calcified stones. No ductal dilation. Pancreas: Normal. No ductal dilation. Spleen: Normal. No splenomegaly. Accessory splenic nodule. Adrenal glands: Stable 1.8 mm nodule right adrenal gland. This has CT number of 43.8 HU. This however shows no increased uptake on PET-CT. Left adrenal gland unremarkable. Kidneys and ureters: Stable bilateral renal cysts. No follow-up imaging recommended. Stable round nodule upper pole left kidney containing small calcification measuring 2.36 cm in diameter with a CT number of 68.5 HU which shows no increased signal intensity on previous PET-CT. Nonobstructing small right renal calculus. No hydronephrosis. Stomach and bowel: Stomach and small bowel unremarkable. Some small diverticula sigmoid colon.. Appendix: No evidence of appendicitis. Intraperitoneal space: Unremarkable. No free air. No significant fluid collection. Vasculature: Mild atherosclerosis.. No abdominal aortic aneurysm. Lymph nodes: Unremarkable. No enlarged lymph nodes. Urinary bladder: Borderline wall thickening could be related to degree of distension. Reproductive: Mild prostatic calcification. Bones/joints: Narrowing L5-S1 disc space. Mild degenerative changes. Mild Schmorl's nodes deformities in multiple levels. Soft tissues: Small umbilical hernia containing fat. Small inguinal hernias containing fat. CT/CT chest abdpel w/*[id number] IMPRESSION: 1. Stable left upper lobe nodule. 2. A small left upper lobe nodule appears less dense and smaller. 3. No new lesions. IMPRESSION: 1. Multiple liver metastases as seen previously. 2. No change right adrenal nodule with CT number 40 3.8 HU but showing no increased uptake on PET-CT. 3. No change left upper pole renal nodule with CT number of 68.5 HU but showing no increased uptake on PET-CT. 4. Simple cysts both kidneys. No follow-up imaging of these recommended.Benign simple renal cyst requiring no follow-up. (Reference: Daria) References: Daria CHILEL, et al. Bosniak Classification of Cystic Renal Masses, Version 2019: An Update Proposal and Needs Assessment. Radiology. 2019;292(2):475-488.
[2025-09-24] MEDS: iohexol 350 mg/mL 500 mL Btl (per mL) PO (09:50)
[2025-09-24] MEDS: iohexol 350 mg/mL 500 mL Btl (per mL) IV (09:53)
== END 2025-09-28 23:59 | disposition home or self-care (01) ==
LOC: RAD 09-25 → ONCMED 09-25 10:58
PROVIDERS: PCP Nurse Practitioner Family; Visit Provider Internal Medicine
DX: C20 Malignant neoplasm of rectum; C78.7 Secondary malignant neoplasm of liver and intrahepatic bile duct; E27.8 Other specified disorders of adrenal gland; N28.89 Other specified disorders of kidney and ureter; N28.1 Cyst of kidney, acquired; R91.8 Other nonspecific abnormal finding of lung field; J84.10 Pulmonary fibrosis, unspecified; R59.0 Localized enlarged lymph nodes; R93.7 Abnormal findings on diagnostic imaging of other parts of musculoskeletal system; D73.89 Other diseases of spleen; N20.0 Calculus of kidney; K57.30 Diverticulosis of large intestine without perforation or abscess without bleeding; I70.90 Unspecified atherosclerosis; N42.89 Other specified disorders of prostate; M48.07 Spinal stenosis, lumbosacral region; K42.9 Umbilical hernia without obstruction or gangrene; K40.20 Bilateral inguinal hernia, without obstruction or gangrene, not specified as recurrent; Z53.9 Procedure and treatment not carried out, unspecified reason
CPT/HCPCS: 71260; 74177

== ENCOUNTER 2025-10-24 07:30 | Oncology outpatient (recurring) (ONCR) | payer MEDICAID, SELFPAY ==
[2025-10-04 10:58] LABS: Hematocrit 39.5 % (37-53); Hemoglobin 12.60 g/dL (11.27-16.99); Mean Corpuscular HGB Conc 31.9 g/dL (30-55); Mean Corpuscular Hemoglobin 28.1 pg (27-33); Mean Corpuscular Volume 88.2 fl (82-101); Nucleated Red Blood Cells % 0 %; Platelet Count 270 10^3/cmm (157-399); Red Blood Count 4.48 10^6/uL (3.85-5.65); White Blood Count 7.89 10^3/uL (3.29-11.43)
[2025-10-04 11:17] LABS: Alanine Aminotransferase 19 U/L (0-41); Albumin Level 3.9 g/dL (3.5-5.2); Alkaline Phosphatase 156 U/L (40-130); Anion Gap 15.1 (5-19); Aspartate Amino Transferase 24 U/L (0-40); Blood Urea Nitrogen 12 mg/dL (8-23); Calcium 10.0 mg/dL (8.5-10.5); Carbon Dioxide 26 mmol/L (22-29); Chloride 103 mmol/L (98-107); Ferritin 41 ng/mL (30-400); Globulin 3.1 g/dL (1.3-4.6); Glucose 181 mg/dL (65-115); Iron 66 ug/dL (59-158); Magnesium 2.2 mg/dL (1.7-2.3); Osmolality Calculated 294 mOsm/kg (285-295); Potassium 4.1 mmol/L (3.5-5.1); Sodium 140 mmol/L (136-145); Total Iron Binding Capacity 321 mcg/dl; Total Protein 7.0 g/dL (6.6-8.7); Unsaturated Iron Binding 255 ug/dL (112-347)
[2025-10-04 13:21] LABS: Carcinoembryonic Antigen 744.9 ng/mL (0.0-4.7)
[2025-10-10 08:14] LABS: Hematocrit 39.5 % (37-53); Hemoglobin 12.60 g/dL (11.27-16.99); Mean Corpuscular HGB Conc 31.9 g/dL (30-55); Mean Corpuscular Hemoglobin 28.1 pg (27-33); Mean Corpuscular Volume 88.2 fl (82-101); Nucleated Red Blood Cells % 0 %; Platelet Count 284 10^3/cmm (157-399); Red Blood Count 4.48 10^6/uL (3.85-5.65); White Blood Count 8.21 10^3/uL (3.29-11.43)
[2025-10-10 08:44] LABS: Carcinoembryonic Antigen 798.6 ng/mL (0.0-4.7)
[2025-10-10 08:55] LABS: Alanine Aminotransferase 24 U/L (0-41); Albumin Level 4.1 g/dL (3.5-5.2); Alkaline Phosphatase 154 U/L (40-130); Anion Gap 15.9 (5-19); Aspartate Amino Transferase 28 U/L (0-40); Blood Urea Nitrogen 14 mg/dL (8-23); Calcium 10.1 mg/dL (8.5-10.5); Carbon Dioxide 26 mmol/L (22-29); Chloride 102 mmol/L (98-107); Globulin 2.7 g/dL (1.3-4.6); Glucose 140 mg/dL (65-115); Osmolality Calculated 293 mOsm/kg (285-295); Potassium 3.9 mmol/L (3.5-5.1); Sodium 140 mmol/L (136-145); Total Protein 6.8 g/dL (6.6-8.7)
[2025-10-10] MEDS: dexamethasone 4 mg/mL INJ 5 mL 12 MG IVP (10:24)
[2025-10-10] MEDS: DEXTROSE 5% IV (12:25)
[2025-10-10] MEDS: OXALIPLATIN IV (12:25)
[2025-10-10] MEDS: fluorouraciL 50 mg/ml MDV 100 mL 1150 MG IVP (15:01)
[2025-10-10 15:13] VITALS: BP 135/77; PULSE 66; RESP 17; TEMP 36.7; O2SAT 96
[2025-10-17 12:45] LABS: Hematocrit 38.5 % (37-53); Hemoglobin 12.40 g/dL (11.27-16.99); Mean Corpuscular HGB Conc 32.2 g/dL (30-55); Mean Corpuscular Hemoglobin 28.4 pg (27-33); Mean Corpuscular Volume 88.1 fl (82-101); Nucleated Red Blood Cells % 0 %; Platelet Count 245 10^3/cmm (157-399); Red Blood Count 4.37 10^6/uL (3.85-5.65); White Blood Count 5.60 10^3/uL (3.29-11.43)
[2025-10-17 13:00] LABS: Alanine Aminotransferase 17 U/L (0-41); Albumin Level 4.0 g/dL (3.5-5.2); Alkaline Phosphatase 133 U/L (40-130); Anion Gap 11.1 (5-19); Aspartate Amino Transferase 22 U/L (0-40); Blood Urea Nitrogen 12 mg/dL (8-23); Calcium 9.5 mg/dL (8.5-10.5); Carbon Dioxide 29 mmol/L (22-29); Chloride 102 mmol/L (98-107); Globulin 2.6 g/dL (1.3-4.6); Glucose 122 mg/dL (65-115); Osmolality Calculated 287 mOsm/kg (285-295); Potassium 4.1 mmol/L (3.5-5.1); Sodium 138 mmol/L (136-145); Total Protein 6.6 g/dL (6.6-8.7)
[2025-10-24 07:50] LABS: Hematocrit 37.0 % (37-53); Hemoglobin 12.10 g/dL (11.27-16.99); Mean Corpuscular HGB Conc 32.7 g/dL (30-55); Mean Corpuscular Hemoglobin 28.5 pg (27-33); Mean Corpuscular Volume 87.1 fl (82-101); Nucleated Red Blood Cells % 0 %; Platelet Count 216 10^3/cmm (157-399); Red Blood Count 4.25 10^6/uL (3.85-5.65); White Blood Count 6.35 10^3/uL (3.29-11.43)
[2025-10-24 08:10] LABS: Alanine Aminotransferase 17 U/L (0-41); Albumin Level 3.8 g/dL (3.5-5.2); Alkaline Phosphatase 132 U/L (40-130); Anion Gap 14.0 (5-19); Aspartate Amino Transferase 18 U/L (0-40); Blood Urea Nitrogen 11 mg/dL (8-23); Calcium 9.6 mg/dL (8.5-10.5); Carbon Dioxide 27 mmol/L (22-29); Chloride 102 mmol/L (98-107); Globulin 2.7 g/dL (1.3-4.6); Glucose 153 mg/dL (65-115); Osmolality Calculated 290 mOsm/kg (285-295); Potassium 4.0 mmol/L (3.5-5.1); Sodium 139 mmol/L (136-145); Total Protein 6.5 g/dL (6.6-8.7)
[2025-10-24] MEDS: dexamethasone 4 mg/mL INJ 5 mL 12 MG IVP (10:35)
[2025-10-24] MEDS: DEXTROSE 5% IV (12:36)
[2025-10-24] MEDS: OXALIPLATIN IV (12:36)
[2025-10-24 13:30] LABS: Glucose Urine UA Negative (Normal); Nitrate Urine Negative (Negative); Specific Gravity, Urine 1.026 (1.005-1.030)
[2025-10-24 13:34] LABS: Add Urine Microscopic? YES
[2025-10-24] MEDS: fluorouraciL 50 mg/ml MDV 100 mL 1150 MG IVP (14:58)
[2025-10-24 15:55] VITALS: BP 130/74; PULSE 60; RESP 18; TEMP 36.6; O2SAT 97
== END 2025-10-28 23:59 | disposition home or self-care (01) ==
PROVIDERS: Internal Medicine; PCP Nurse Practitioner Family; Visit Provider Nurse Practitioner Family
DX: Z53.9 Procedure and treatment not carried out, unspecified reason; Z51.11 Encounter for antineoplastic chemotherapy; Z51.12 Encounter for antineoplastic immunotherapy; C20 Malignant neoplasm of rectum; Z79.52 Long term (current) use of systemic steroids; Z79.631 Long term (current) use of antimetabolite agent; Z79.899 Other long term (current) drug therapy
CPT/HCPCS: 36591; 80053; 81001; 82378; 82728; 83010; 83540; 83550; 83615; 83735; 85025; 85045; 96368; 96375; 96409; 96411; 96413; 96415; 96416; 96417; J0640; J1100; J2469; J3490; J7050; J7060; J9190; J9263; Q5118

== ENCOUNTER 2025-11-20 07:35 | Oncology outpatient (recurring) (ONCR) | payer MEDICAID, SELFPAY ==
[2025-11-07 08:12] LABS: Hematocrit 37.9 % (37-53); Hemoglobin 12.10 g/dL (11.27-16.99); Mean Corpuscular HGB Conc 31.9 g/dL (30-55); Mean Corpuscular Hemoglobin 28.0 pg (27-33); Mean Corpuscular Volume 87.7 fl (82-101); Nucleated Red Blood Cells % 0 %; Platelet Count 205 10^3/cmm (157-399); Red Blood Count 4.32 10^6/uL (3.85-5.65); White Blood Count 5.29 10^3/uL (3.29-11.43)
[2025-11-07 08:44] LABS: Carcinoembryonic Antigen 478.0 ng/mL (0.0-4.7)
[2025-11-07 08:55] LABS: Alanine Aminotransferase 20 U/L (0-41); Albumin Level 4.0 g/dL (3.5-5.2); Alkaline Phosphatase 122 U/L (40-130); Anion Gap 12.9 (5-19); Aspartate Amino Transferase 21 U/L (0-40); Blood Urea Nitrogen 12 mg/dL (8-23); Calcium 9.9 mg/dL (8.5-10.5); Carbon Dioxide 28 mmol/L (22-29); Chloride 102 mmol/L (98-107); Globulin 2.6 g/dL (1.3-4.6); Glucose 152 mg/dL (65-115); Osmolality Calculated 291 mOsm/kg (285-295); Potassium 3.9 mmol/L (3.5-5.1); Sodium 139 mmol/L (136-145); Total Protein 6.6 g/dL (6.6-8.7)
[2025-11-07 09:13] VITALS: BP 144/84; PULSE 62; RESP 18; TEMP 36.5; O2SAT 95
[2025-11-07] MEDS: dexamethasone 4 mg/mL INJ 5 mL 12 MG IVP (09:31)
[2025-11-07] MEDS: OXALIPLATIN IV (10:55)
[2025-11-07] MEDS: DEXTROSE 5% IV (10:55)
[2025-11-07 12:01] LABS: Glucose Urine UA Negative (Normal); Nitrate Urine Negative (Negative); Specific Gravity, Urine 1.026 (1.005-1.030)
[2025-11-07 12:06] LABS: Add Urine Microscopic? YES
[2025-11-07] MEDS: fluorouraciL 50 mg/ml MDV 100 mL 1150 MG IVP (13:13)
[2025-11-07 13:24] VITALS: BP 147/83; PULSE 76; RESP 17; TEMP 36.3; O2SAT 94
[2025-11-20 07:56] LABS: Hematocrit 40.0 % (37-53); Hemoglobin 12.70 g/dL (11.27-16.99); Mean Corpuscular HGB Conc 31.8 g/dL (30-55); Mean Corpuscular Hemoglobin 28.5 pg (27-33); Mean Corpuscular Volume 89.9 fl (82-101); Nucleated Red Blood Cells % 0 %; Platelet Count 213 10^3/cmm (157-399); Red Blood Count 4.45 10^6/uL (3.85-5.65); White Blood Count 6.11 10^3/uL (3.29-11.43)
[2025-11-20 08:05] LABS: Alanine Aminotransferase 19 U/L (0-41); Albumin Level 3.9 g/dL (3.5-5.2); Alkaline Phosphatase 126 U/L (40-130); Anion Gap 13.0 (5-19); Aspartate Amino Transferase 28 U/L (0-40); Blood Urea Nitrogen 14 mg/dL (8-23); Calcium 9.9 mg/dL (8.5-10.5); Carbon Dioxide 28 mmol/L (22-29); Chloride 104 mmol/L (98-107); Globulin 2.6 g/dL (1.3-4.6); Glucose 178 mg/dL (65-115); Osmolality Calculated 297 mOsm/kg (285-295); Potassium 4.0 mmol/L (3.5-5.1); Sodium 141 mmol/L (136-145); Total Protein 6.5 g/dL (6.6-8.7)
[2025-11-20 08:14] LABS: Carcinoembryonic Antigen 391.0 ng/mL (0.0-4.7)
[2025-11-20] MEDS: dexamethasone 4 mg/mL INJ 5 mL 12 MG IVP (09:23)
[2025-11-20] MEDS: OXALIPLATIN IV (10:36)
[2025-11-20] MEDS: DEXTROSE 5% IV ×2 (10:36→10:38)
[2025-11-20] MEDS: LEUCOVORIN IV (10:38)
[2025-11-20 12:01] LABS: Glucose Urine UA Negative (Normal); Nitrate Urine Negative (Negative)
[2025-11-20 12:06] LABS: Add Urine Microscopic? YES; Universal Test for UA Present (0)
[2025-11-20 12:20] LABS: Specific Gravity, Urine 1.034 (1.005-1.030); UA Slide Review UA Slide Review Perf
[2025-11-20] MEDS: fluorouraciL 50 mg/ml MDV 100 mL 1200 MG IVP (12:50)
[2025-11-20 13:05] VITALS: BP 161/72; PULSE 64; RESP 17; TEMP 36.3; O2SAT 97
== END 2025-11-20 23:59 | disposition home or self-care (01) ==
PROVIDERS: Nurse Practitioner; Nurse Practitioner Family; PCP Nurse Practitioner Family; Visit Provider Nurse Practitioner
DX: Z51.11 Encounter for antineoplastic chemotherapy; Z51.12 Encounter for antineoplastic immunotherapy; C20 Malignant neoplasm of rectum; Z79.52 Long term (current) use of systemic steroids; Z79.899 Other long term (current) drug therapy; Z79.631 Long term (current) use of antimetabolite agent; Z53.9 Procedure and treatment not carried out, unspecified reason
CPT/HCPCS: 80053; 81001; 82378; 85025; 96368; 96375; 96411; 96413; 96415; 96416; 96417; J0640; J1100; J2469; J3490; J7050; J7060; J9190; J9263; Q5118